=== PATIENT | female | born 1955 ===

== ENCOUNTER 2017-08-29 11:24 | Emergency (ER) | payer MEDICAID ==
[2017-08-29 11:39] VITALS: TEMP 98.1; O2SAT 96
[2017-08-29] MEDS ORDERED: Sodium Chloride 0.9% 1,000 ML IV ONE (12:14)
--- NOTE | 2017-08-29 13:19 | C.PDOC ---
History Of Present Illness 61 yr old female presents to the ER with complaints of dizziness intermittently for the past 5 days, associated with head pressure and nausea. Patient describes it as the room spinning around her, made worse with head movement and changes in head position. Patient denies facial droop, slurred speech, fever/ chills, visual changes, chest pain, palpitations, SOB, vomiting, sensory changes , extremity weakness. Time Seen by Provider: 08/29/17 12:04 Chief Complaint (Nursing): Dizziness/Lightheaded History Per: Patient History/Exam Limitations: no limitations Onset/Duration Of Symptoms: Days (5) Current Symptoms Are (Timing): Still Present Activity At Onset Of Symptoms: Sitting, Standing, Change In Head Position Severity: Mild Past Medical History Reviewed: Historical Data, Nursing Documentation, Vital Signs Vital Signs: Last Vital Signs Temp 98.1 F 08/29/17 11:33 Pulse 59 L 08/29/17 15:04 Resp 16 08/29/17 15:04 BP 117/66 08/29/17 15:04 Pulse Ox 96 09/02/17 08:46 - Medical History PMH: Hypercholesterolemia Family History: States: No Known Family Hx - Social History Hx Alcohol Use: No Hx Substance Use: No Review Of Systems Except As Marked, All Systems Reviewed And Found Negative. Constitutional: Negative for: Fever, Chills Eyes: Negative for: Vision Change Cardiovascular: Negative for: Chest Pain, Palpitations Respiratory: Negative for: Shortness of Breath Gastrointestinal: Positive for: Nausea. Negative for: Vomiting, Abdominal Pain , Diarrhea Neurological: Positive for: Dizziness. Negative for: Weakness, Numbness Physical Exam - Physical Exam Appears: Well, Non-toxic, In Acute Distress (Uncomfortable) Skin: Warm, Dry, No Rash Head: Atraumatic, Normacephalic Eye(s): bilateral: PERRL, EOMI, Other (Occasional horizontal nystagmus) Oral Mucosa: Moist Neck: Normal, Supple Chest: Symmetrical Cardiovascular: Rhythm Regular Respiratory: Normal Breath Sounds, No Rales, No Rhonchi, No Wheezing Neurological/Psych: Oriented x3, Normal Speech, Normal Cognition, Normal Cranial Nerves, No Cerebellar Signs, Normal Motor, Normal Sensation Gait: Steady ED Course And Treatment - Laboratory Results Result Diagrams: 08/29/17 13:17 08/29/17 13:17 O2 Sat by Pulse Oximetry: 96 (RA) Pulse Ox Interpretation: Normal - Other Rad CT HEAD X-Ray: Viewed By Me, Read By Radiologist Interpretation: Accession No. : [id number]. Patient Name / ID : ISIS [id number] / [id number]. Exam Date : 08/29/2017 13:02:51 ( Approved ). Study Comment : Sex / Age : F / 61Y. Creator : South Rodarte MD. 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 Approver2 : Report Date : 08/29/2017 13:41:07. My Comment : . PROCEDURE: CT HEAD WITHOUT CONTRAST. HISTORY: vertigo, headache. COMPARISON: None available. TECHNIQUE: Axial computed tomography images were obtained through the head/brain without intravenous contrast. Radiation dose: Total exam DLP = 809.94 mGy-cm. This CT exam was performed using one or more of the following dose reduction techniques: Automated exposure control, adjustment of the mA and/or kV according to patient size, and/or use of iterative reconstruction technique. FINDINGS: HEMORRHAGE: No acute parenchymal, subarachnoid or extra-axial hemorrhage. BRAIN: Chronic infarct right inferior frontal lobe (see axial image number [id number]). . Additionally, there are minor chronic periventricular white matter ischemic changes with what could also represent a few tiny chronic lacunar-type infarcts along the anterolateral basal ganglia/ subinsular region. . Probable dilated perivascular space right inferior basal ganglia. . Probable partially empty sella. VENTRICLES: No obstructive hydrocephalus. CALVARIUM: Calvarium intact. PARANASAL SINUSES: Unremarkable as visualized. No significant inflammatory changes. MASTOID AIR CELLS: Unremarkable as visualized. No inflammatory changes. OTHER FINDINGS: None. IMPRESSION: No acute intracranial hemorrhage. Suspect minor chronic white matter ischemic changes, few left basal ganglia chronic lacunar-type infarcts and suspected chronic infarct right inferior frontal lobe. . Progress Note: PLAN: Blood work, UA, CT - Head ordered and reviewed. Patient given IV NS bolus, PO meclizine. Reevaluation Time: 15:10 Reassessment Condition: Improved (Patient reassessed, states her symptoms have resolved and she feels much better. Blood work unremarkable, and CT head (+) for chronic findings which patient was made aware of. Patient ambulating normally in ED. Rx for meclizine given, and patient instructed to follow up with ENT & neurology within 1 week. She understands she should return to ED if symptoms worsen.) Disposition Counseled Patient/Family Regarding: Studies Performed, Diagnosis, Need For Followup, Rx Given - Disposition Referrals: Italo Chiu MD [Staff Provider] - Jame Mata MD [Staff Provider] - Lawrence Weldon MD [Staff Provider] - Disposition: HOME/ ROUTINE Disposition Time: 15:10 Condition: STABLE Additional Instructions: SEGUIMIENTO CON EL DR CHIU EN 1-2 CAMPOS Y CON ENT Y NEUROLOGA ESPECIALISTAS DENTRO DE 1 SEMANA DEVUELVA A LA NAIN DE EMERGENCIA SI LOS SINTOMAS VUELVEN Prescriptions: Meclizine [Meclizine*] 25 mg PO Q6 #25 tab Instructions: Benign Paroxysmal Positional Vertigo (ED) Forms: [facility] (Barbadian) Print Language: GREEK - POA Present On Arrival: None - Clinical Impression Clinical Impression: Peripheral vertigo - Scribe Statement The provider has reviewed the documentation as recorded by the Scribe Isabel Frias Provider Attestation: All medical record entries made by the Scribe were at my direction and personally dictated by me. I have reviewed the chart and agree that the record accurately reflects my personal performance of the history, physical exam, medical decision making, and the department course for this patient. I have also personally directed, reviewed, and agree with the discharge instructions and disposition.
[2017-08-29] MEDS ORDERED: Sodium Chloride 0.9% 1,000 ML ONE (13:25)
[2017-08-29 13:32] LABS: BASO # 0.1 K/uL (0.0-0.2); BASO % 0.6 % (0.0-2.0); EOS # 0.4 K/uL (0.0-0.7); EOS % 4.1 % (0.0-4.0); HEMATOCRIT 39.8 % (34.0-47.0); LYMPH # 1.8 K/uL (1.0-4.3); LYMPH % 20.5 % (20.0-40.0); MEAN CELL VOLUME 86.8 fL (81.0-99.0); MEAN CORPUSCULAR HEMOGLOBIN 29.9 pg (27.0-31.0); MEAN CORPUSCULAR HGB CONC 34.5 g/dL (33.0-37.0); MEAN PLATELET VOLUME 9.1 fL (7.2-11.7); MONO # 0.8 K/uL (0.0-0.8); MONO % 8.6 % (0.0-10.0); RED CELL DISTRIBUTION WIDTH 13.4 % (11.5-14.5); WHITE BLOOD COUNT 8.8 K/uL (4.8-10.8)
[2017-08-29 13:42] LABS: CHLORIDE 101 mmol/L (98-107); POTASSIUM 4.3 mmol/L (3.6-5.2); SODIUM 139 mmol/L (132-148)
--- NOTE | 2017-08-29 13:42 | CT ---
PROCEDURE: CT HEAD WITHOUT CONTRAST. HISTORY: vertigo, headache COMPARISON: None available. TECHNIQUE: Axial computed tomography images were obtained through the head/brain without intravenous contrast. Radiation dose: Total exam DLP = 809.94 mGy-cm. This CT exam was performed using one or more of the following dose reduction techniques: Automated exposure control, adjustment of the mA and/or kV according to patient size, and/or use of iterative reconstruction technique. FINDINGS: HEMORRHAGE: No acute parenchymal, subarachnoid or extra-axial hemorrhage. BRAIN: Chronic infarct right inferior frontal lobe (see axial image number [id number]). . Additionally, there are minor chronic periventricular white matter ischemic changes with what could also represent a few tiny chronic lacunar-type infarcts along the anterolateral basal ganglia/ subinsular region. . Probable dilated perivascular space right inferior basal ganglia. . Probable partially empty sella. VENTRICLES: No obstructive hydrocephalus. CALVARIUM: Calvarium intact. PARANASAL SINUSES: Unremarkable as visualized. No significant inflammatory changes. MASTOID AIR CELLS: Unremarkable as visualized. No inflammatory changes. OTHER FINDINGS: None. IMPRESSION: No acute intracranial hemorrhage. Suspect minor chronic white matter ischemic changes, few left basal ganglia chronic lacunar-type infarcts and suspected chronic infarct right inferior frontal lobe. .
[2017-08-29 13:44] LABS: AST/SGOT 43 U/L (14-36); BILIRUBIN,TOTAL 0.5 mg/dL (0.2-1.3); CARBON DIOXIDE 23 mmol/L (22-30); GFR AFRICAN-AMERICAN > 60
[2017-08-29 13:45] LABS: ALB/GLOB RATIO 1.1 (1.0-2.1); ALKALINE PHOSPHATASE 55 U/L (38-126); ALT/SGPT 66 U/L (9-52); BLOOD UREA NITROGEN 12 mg/dL (7-17); CALCIUM 9.4 mg/dl (8.6-10.4); GLUCOSE,RANDOM 104 mg/dL (65-105); TOTAL PROTEIN 7.9 g/dL (6.3-8.3)
[2017-08-29 13:53] LABS: URINE BILIRUBIN NEGATIVE (NEGATIVE); URINE BLOOD 1+ (NEGATIVE); URINE COLOR Straw (YELLOW); URINE GLUCOSE (UA) NORMAL (Normal); URINE KETONE NEGATIVE (NEGATIVE); URINE LEUKOCYTE ESTERASE NEG Leu/uL (Negative); URINE PROTEIN NEGATIVE (NEGATIVE); URINE UROBILINOGEN NORMAL mg/dL (0.2-1.0)
[2017-08-29 13:56] LABS: RBC URINE 3 /hpf (0-3); WBC URINE < 1 /hpf (0-5)
[2017-08-29 15:05] VITALS: BP 117/66; PULSE 59; RESP 16
--- NOTE | 2017-09-06 06:49 | CARD ---
APPROVED REPORT EKG Measurement Heart [id number] <Conclusion> Normal sinus rhythm Normal ECG
== END 2017-08-29 15:12 | disposition home or self-care (01) ==
LOC: C.ER 11:24
DX: H81.399 Other peripheral vertigo, unspecified ear (principal)
CPT/HCPCS: 70450; 80053; 81001; 82550; 82553; 82948; 84484; 85025; 99285; J7040